=== PATIENT | female | born 1985 | race Caucasian/White ===

== ENCOUNTER → 2016-11-14 | Outpatient (CLI) | payer OTHER ==
[~2016-11-14] MED LIST: GADOBUTROL 10 ML VIAL IVP ONE
== END ==
LOC: FIMAGING 13:37
PROVIDERS: ATTEND Internal Medicine Endocrinology, Diabetes & Metabolism
DX: E22.1 Hyperprolactinemia (principal); D44.3 Neoplasm of uncertain behavior of pituitary gland
CPT/HCPCS: A9585